=== PATIENT | female | born 1945 | race Caucasian/White ===

== ENCOUNTER 2017-03-02 09:01 | Outpatient (CLI) | payer MEDICARE, OTHER ==
[2017-03-02 09:43] LABS: eGFR (African) > 60; eGFR (Non-African) > 60
== END 2017-03-02 09:02 ==
LOC: LAB 09:01
PROVIDERS: ATTEND Family Medicine
DX: E78.2 Mixed hyperlipidemia (principal)
CPT/HCPCS: 36415; 80053; 80061

== ENCOUNTER 2018-03-10 14:33 | Outpatient (CLI) | payer MEDICARE, OTHER ==
--- NOTE | 2018-03-10 19:45 | Diagnostic Imaging Report ---
XUAN TENORIO [facility] [address] [facility].[address] [address] Report Submission Date: Mar 10, 2018 3:16:22 PM CDT Patient Study Name: HARINDER POWELL Date: Mar 10, 2018 2:35:42 PM CDT Modality Type: DX Gender: F Description: LOWER EXTREMITY : 45 Institution: [facility] Physician: XUAN TENORIO Examination: Plain film right foot History: PAIN IN ARCH OF RT FOOT FOR ABOUT A MONTH. Findings: 3 views of the right foot demonstrates osteopenia. Articular degenerative changes. Hallux valgus deformity 1st digit. Calcaneal spurs. No acute soft tissue abnormality. Impression: Osteopenia and degenerative changes. 1st digit hallux valgus deformity. Electronically signed on Mar 10, 2018 3:16:22 PM CDT by: Sunday BILLINGS
== END 2018-03-10 14:38 | disposition home or self-care (01) ==
LOC: RAD 14:33
PROVIDERS: ATTEND Family Medicine
DX: M79.671 Pain in right foot (principal)
CPT/HCPCS: 73630

== ENCOUNTER 2018-07-26 09:26 | Outpatient (CLI) | payer MEDICARE, OTHER ==
[2018-07-26 10:06] LABS: eGFR (Non-African) > 60
== END 2018-07-26 09:28 ==
LOC: LAB 09:26
PROVIDERS: ATTEND Family Medicine
DX: E78.2 Mixed hyperlipidemia (principal)
CPT/HCPCS: 36415; 80053; 80061

== ENCOUNTER 2019-01-19 08:43 | Outpatient (CLI) | payer MEDICARE, OTHER ==
[2019-01-19 09:27] LABS: BASOPHILS % 0.3 % (0.0-1.5); NEUTROPHILS # 3.6 # k/uL (1.4-7.7)
--- NOTE | 2019-01-19 09:37 | Diagnostic Imaging Report ---
XUAN TENORIO [facility] [address] [facility] [address] [address] Report Submission Date: Jan 19, 2019 9:09:01 AM CDT Patient Study Name: HARINDER POWELL Date: Jan 19, 2019 8:54:10 AM CDT Modality Type: DX Gender: F Description: CHEST 2VIEW : 45 Institution: [facility] Physician: XUAN TENORIO Exam: Chest two views. History: Weight loss. No previous studies are available for comparison. Lung ocampo are well aerated without emmanuel consolidation or effusion. Heart and mediastinal contour are normal. No bony abnormalities are identified. Impression: No emmanuel consolidation or effusion. Electronically signed on Jan 19, 2019 9:09:01 AM CDT by: Dillon BILLINGS
[2019-01-19 10:01] LABS: eGFR (Non-African) > 60
== END 2019-01-19 08:45 ==
LOC: LAB 08:43
PROVIDERS: ATTEND Family Medicine
DX: R63.4 Abnormal weight loss (principal)
CPT/HCPCS: 36415; 71046; 80053; 84443; 85025